=== PATIENT | female | born 1970 | race Caucasian/White ===

== ENCOUNTER → 2021-04-27 | Outpatient (CLI) | payer OTHER ==
[~2021-04-27] MED LIST: FISH OIL OMEGA1 EACH PO; HYDR-3237 PO; IBUP-1222 PO; LIOT5TAB11 PO; METH1TAB21 PO; MULT-658 PO; OXYC5CAP2 PO; PHEN37.53 PO; [UNRECOGNIZED DRUG - OTHER] PO; ferrous sulfate PO; nature-throid PO; vitamin d PO
== END | disposition home or self-care (01) ==
LOC: CFH 14:36
PROVIDERS: ATTEND Genetic Counselor, MS
DX: Z12.31 Encounter for screening mammogram for malignant neoplasm of breast (principal)
CPT/HCPCS: 77063; 77067